=== PATIENT | female | born 1990 | race Caucasian/White ===

== ENCOUNTER → 2025-02-05 13:20 | Outpatient (CLI) | payer OTHER, SELFPAY ==
--- NOTE | 2025-02-05 | DI.US.S_ITS ---
PROCEDURE: US OB >= 14 WEEKS FETUS INDICATIONS: 20 WEEK ANATOMY SCAN OUTSIDE/PRIOR DATING DATA: Last menstrual period (LMP): 09/24/2024. LMP-based estimated date of delivery (NANCY): 07/01/2025. First dating scan (date and location): 02/05/2025. Estimated date of delivery (NANCY) from first dating scan: 07/02/2025. TECHNIQUE: Real-time scanning was performed of the fetus, with image documentation and biometric measurements. COMPARISON: None. FINDINGS: General: A single living intrauterine gestation is present. Presentation: Transverse. Placenta: Placental position is posterior , without previa. Amniotic fluid index: 14.7 cm, normal range is 5-24 cm. Single deepest vertical pocket is 4.0 cm. heart rate: Variable ranging from 11/03/2074 35 beats per minute. Maternal cervical canal: 4.7 cm long. Normal lower limit is 2.5 cm. biometrics: Biparietal diameter: 4.2 cm 18 weeks 5 days Head circumference: 15.6 cm 18 weeks 3 days Abdominal circumference: 14.8 cm 19 weeks 6 days Femur length: 2.9 cm 18 weeks 5 days Clinically estimated gestational age: 19 weeks 1 day Composite gestational age from present scan: 19 weeks 0 days Estimated weight and percentile: 281 g 51st percentile Anatomic survey: Neuro: Ventricles are non-dilated at less than 10 mm. Cisterna magna is normal at 3-11 mm. Cerebellum is normal in size and morphology. Nuchal skin fold: Normal at less than 6 mm between 14-21 weeks gestational age. Face: Nose and lips, facial profile are normal. Spine: No evidence for spina bifida. Heart: 4-chambered heart is present, with normal ventricular outflow tracts. Diaphragm: Diaphragm is intact. Stomach: Left-sided stomach is present. Kidneys: No hydronephrosis. Normal is less than 5 mm in 2nd trimester, less than 7 mm in 3rd trimester. Cord: 3-vessel cord has orthotopic insertion. Bladder: Normal in size. Extremities: All 4 extremities identified. IMPRESSION: Single live intrauterine with gestational age today of 19 weeks 0 days. Anatomy is within normal limits. Variable heart tones as above. This is overall nonspecific and recommend attention to this region on follow-up exam. We strive to produce accurate, complete, and clear reports of imaging services. To assist us in improving patient care, this report was composed using standard report templates and voice recognition software. Therefore, it may contain abnormal punctuation, insertions and/or omissions. Occasional wrong-word or sound-alike substitutions may occur. Though we review the report and make efforts to correct it, we do recommend that the report be read carefully in proper context to recognize any text inaccuracies. Dictated by: Opal Zee M.D. on 02/06/2025 at 12:01 Approved by: Opal Zee M.D. on 02/06/2025 at 12:10
== END ==
LOC: US 13:24
PROVIDERS: Referring Provider Nurse Practitioner Obstetrics & Gynecology; Visit Provider Nurse Practitioner Obstetrics & Gynecology
DX: Z34.92 Encounter for supervision of normal pregnancy, unspecified, second trimester (principal); Z3A.19 19 weeks gestation of pregnancy
CPT/HCPCS: 76811

== ENCOUNTER 2025-07-02 03:19 | Inpatient (IN) | payer OTHER, SELFPAY ==
--- NOTE | 2025-07-02 03:30 | PM.OBHP.1 ---
OB HPI Date/Time Date of admission: 07/02/25 Date Patient Seen: 07/02/25 Time Patient Seen: 03:20 History of Present Condition Chief complaint: labor : 2 Para: 1 Estimated Date of Delivery: 07/02/25 Estimated Gestational Age (weeks): 40W1D Narrative: Madelin Walters is a 34 year old female at 40w1d by sure LMP who is here with spontaneous labor. Madelin called the CNM at 0145 thinking she was in labor then again at 0245 and was heading to the hospital. She denied leaking of fluid or vaginal bleeding. She had a uncomplicated under the care of CNMd. Here with her , Ranjit. History of Present care: good care, initiated at week # (15w2d), number of visits (9) and pounds weight gain (10) Dating criteria: based on LMP only Ultrasounds: normal 1st trimester US and normal mid trimester US Obstetrical complications: none Medical complications: none Preadmission Labs Blood type: O (+) positive -: Antibody screen: negative, GBS status: positive, HBsAG: negative, HIV: negative and RPR/VDLR: negative -: Chlamydia screen: not detected and Gonorrhea screen: not detected -: Rubella: immune and Varicella: immune HCT: 38.9 HCAB: negative PAP: Normal Quad screen: Normal (AFP only (negative screen)) 1 hr GTT: 96 Prior (ies) History: Hx # Term Pregnancies: 1 Hx # Pregnancies: 0 Number of Living Children: 1 Multiple births: 0 Spontaneous abortions: 0 Ectopic pregnancies: 0 Elective abortions: 0 Evaluation Evaluation Dilation (cm): 10 Effacement (%): 100 station: +3 Comments: No FHR due to precipitous delivery. [facility] Medical History (Updated 07/02/25 @ 05:20 by Priya Staley CNM, GEOVANNI) Migraine Family History (Updated 07/02/25 @ 05:21 by Priya Staley CNM, GEOVANNI) Grandfather Hypertension Stroke Diabetes mellitus Social History (Updated 07/02/25 @ 05:24 by Priya Staley CNM, GEOVANNI) marital status: number of children: 1 household members: significant other and children lives independently: Yes caregiver/support person: No education level: college occupational status: employed Smoking Status: Never smoker alcohol intake: never substance use type: does not use Meds Home Medications and Allergies Home Medications ?Medication ?Instructions ?Recorded ?Confirmed ?Type vits no.130-ferrous fum 1 tab PO DAILY 07/02/25 07/02/25 History 27 mg iron-folic acid 800 mcg tablet ( Vitamin) Allergies Allergy/AdvReac Type Severity Reaction Status Date / Time No Known Drug Allergies Allergy Verified 07/02/25 04:02 Review of Systems Review of Systems ROS: Yes All systems reviewed with the patient and are negative except as otherwise documented OB Exam Resp Effort & Inspection: normal respiratory effort and able to speak in complete sentences Presentation: vertex Objective Labs 07/03/25 05:05 Assessment and Plan Assessment and Plan Assessment and Plan narrative: Assessment: at 40w1d GBS prophylaxis indicated Active labor Blood type O positive Plan: Admit for labor Anticipate NSVB Time-Based Coding :: [TOTAL MINUTES] spent with patient and on the chart (including review of chart, obtaining history, exam, reviewing outside data, placing orders, documenting exam and treatment plan, and counseling patient) on [DATE].
[2025-07-02] MEDS: OXYTOCIN 10 UNIT/ML VIAL IM ×2 (03:57→03:59)
[2025-07-02] MEDS: LIDOCAINE 1% 20 ML INJ (04:11)
[2025-07-02] MEDS: IBUPROFEN 600 MG TABLET PO ×3 (05:38→23:55)
[2025-07-02] MEDS: ACETAMINOPHEN 325 MG TABLET 650 MG PO ×3 (05:39→23:55)
[2025-07-02] MEDS: DERMOPLAST SPRAY 20% 60 ML 1 SPRAY TOP (05:40)
[2025-07-02] MEDS: TRANEXAMIC ACID 1,000 MG in SODIUM CHLORIDE 0.9% 100 ML 600 MG IV (05:45)
--- NOTE | 2025-07-02 05:54 | PM.OBPRVD ---
Labor & Delivery Delivery date: 07/02/25 Delivery Time: 03:34 Intrapartal Events: Precipitous Labor < 3 hours Route of delivery: L&D Laceration Description: Perineal - 1st Degree and Vaginal - 2nd Degree (bleeding sutured with figure of 8) Delivery repair: chromic Quantitative Blood Loss: 1,082 Anesthesia Type: None Narrative: Labor progressed quickly. Madelin felt the spontaneous urge to push while still in the car; was able to wait until she got on the unit and then pushed effectively for a short 2nd stage prior to CNM arrival. FHR was not auscultated due to precipitous delivery. NSVB of baby at 0334, shoulders delivered easily. Baby was placed on maternal abdomen for drying and stimulation. Apgars 9/9. CNM arrived just after delivery; no apparent bleeding at that time. 10 mU pitocin given IM. Madelin and baby girl remained skin to skin while cord was cut and placenta was delivered. Placenta delivered spontaneously with maternal efforts and appeared to be intact; 539 mL blood clots came with placental delivery and bleeding continued despite fundus firm at U. 2nd dose of 10 mu pitocin given IM. 3 vessel cord double clamped by BHAVIN and cut by Ranjit (FOB) at 18 minutes of life after cord pulsing had stopped. Cord blood collected for blood typing due to maternal O pos blood type. Perineum inspected and found to be have bleeding vaginal laceration and 1st degree perineal laceration; both repaired with 3-0 chromic after 15 mL lidocaine instilled for analgesia. Blood loss measured and estimated loss is 1082 mL. TXA given orally to continue to manage small bleeding. Mom and baby left stable and is going well. Madelin and Ranjit are thrilled to meet their baby. Priya GALARZA CNM, IBCLC with [facility] Baby 1: gender: Female Presentation: vertex Position: Left Occiput Anterior Cord Vessel Description: 3 Vessels score (1 min): 9 score (5 min): 9 weight: 3.008 kg Plan for aftercare: Routine care
[2025-07-02] MEDS: LACTATED RINGERS 1,000 ML 1000 ML IV (07:04)
[2025-07-02 07:29] LABS: Add Manual Diff / Slide Review NO; Hematocrit 35.0 % (36-46); Hemoglobin 12.1 g/dL (12.0-16.0); Lymphocytes Absolute Auto 800 /uL (1100-4500); Mean Corpuscular HGB Conc 34.6 % (30-36); Mean Corpuscular Hemoglobin 29.3 PG (26-34); Mean Corpuscular Volume 84.5 fL (80-100); Platelet Count 181 X10^3/uL (150-400)
[2025-07-02] MEDS: LANOLIN OINT 7 GM 1 APPLIC TOP (13:20)
[2025-07-02] MEDS: SENNOSIDES 8.6 MG TABLET 17.2 MG PO (20:30)
[2025-07-03 05:27] LABS: Add Manual Diff / Slide Review NO; Hematocrit 28.7 % (36-46); Hemoglobin 10.0 g/dL (12.0-16.0); Lymphocytes Absolute Auto 2500 /uL (1100-4500); Mean Corpuscular HGB Conc 34.9 % (30-36); Mean Corpuscular Hemoglobin 29.9 PG (26-34); Mean Corpuscular Volume 85.9 fL (80-100); Platelet Count 159 X10^3/uL (150-400)
[2025-07-03] MEDS: ACETAMINOPHEN 325 MG TABLET 650 MG PO (06:03)
[2025-07-03] MEDS: IBUPROFEN 600 MG TABLET PO (06:04)
--- NOTE | 2025-07-03 08:58 | PM.OBDS.1 ---
Discharge Providers Provider Date of admission: 07/02/25 03:19 Discharge Date: 07/03/25 Consults: 07/02/25 04:50 Consult to Anesthesiology Urgent Comment: Consulting Provider: Anesthesiologist Reason for consultation: Epidural Has provider been notified: No 07/02/25 05:09 Consult to Purchasing And Claims Supervisor Routine Comment: Discharge provider: Priya Staley CNM, ARNP Summary Hospital Course Date Patient Seen: 07/03/25 Time Patient Seen: 08:30 Diagnoses: O80 Hospital Course: Madelin arrived to L&D pushing, and as she entered the unit, SROM, clear fluid and RN could see the head. Got her to a room where baby delivered. PPH with/after placental delivery managed with IM pitocin and oral TXA. QBL 1082 mL. . Normal course. Peripartum Data Infant Delivery Method: Natural Vaginal Laceration Description: Periurethral - 1st Degree and Vaginal - 2nd Degree [place] 1: Gender: Female Disposition of : home Status at Discharge Cognitive/behavioral status at discharge: oriented and calm Functional status at discharge: independent ambulation Overall status at discharge: patient is progressing back to baseline Time Spent with Patient Time attestation: Total time spent providing and/or coordinating discharge services: Time spent: Less than 30 minutes Specific discharge activities: discharge teaching Objective Labs 07/03/25 05:05 Labs: Early PP H&H: Laboratory Results - last 24 hr 07/03/25 05:05 WBC 10.5 RBC 3.34 L Hgb 10.0 L Hct 28.7 L MCV 85.9 MCH 29.9 MCHC 34.9 RDW 14.5 Plt Count 159 Neut % (Auto) 70.2 Lymph % (Auto) 23.5 L [place] % (Auto) 5.1 Eos % (Auto) 0.6 L Baso % (Auto) 0.6 Neut # (Auto) 7400 H Lymph # (Auto) 2500 [place] # (Auto) 500 Eos # (Auto) 100 Baso # (Auto) 100 Exam Vital Signs (past 8 hours): 109/70 84 bpm 16/min 97.9 F Temporal Discharge Plan Discharge Plan Patient Disposition: Home Discharge orders & Medications Prescriptions: Continued Vitamin 27 mg iron- 800 mcg tablet 1 tab PO DAILY Follow up/Referrals: Priya Staley CNM, ARNP [[facility] [employer]] - 2 Weeks Referral Note: 2 weeks and 6 weeks as scheduled - see email. Diet/Activity/Treatments Diet: Regular Diet comment: focus on fluid and fiber Activity: low-salazar x 2 weeks Cold/Heat Therapy: as needed Skin/Wound/Dressing Care Skin care: usual care Report to your healthcare provider any signs of infection, such as:: chills, fever, increased pain, unusual drainage and unusual redness Visit Report/Discharge Packet Instructions: DI for Depression Stand Alone Forms: Patient Portal/API, Stroke Signs & Symptoms
== END 2025-07-03 11:00 | disposition home or self-care (01) | DRG 807 ==
PROVIDERS: Admitting Provider Advanced Practice Midwife; Visit Provider Advanced Practice Midwife
DX: O99.824 Streptococcus B carrier state complicating childbirth (principal); Z37.0 Single live birth; Z3A.40 40 weeks gestation of pregnancy; O62.3 Precipitate labor; O70.1 Second degree perineal laceration during delivery; O70.0 First degree perineal laceration during delivery
CPT/HCPCS: 36415; 85025; 86850; 86900; 86901; G0379; J2590